=== PATIENT | female | born 1995 | race Caucasian/White ===

== ENCOUNTER 2016-07-22 15:15 | Emergency (ER) | payer OTHER ==
--- NOTE | 2016-07-22 15:57 | ED CLINICAL REPORT ---
Clinical Report - Physicians/Mid Levels [facility] [address] [place] [address] 07/22/2016 15:22 Patient: REGAN MIRELES Time Seen: 15:46 Jul 22 2016. Arrived- By private vehicle. Historian- patient. HISTORY OF PRESENT ILLNESS Chief Complaint: SKIN RASH and TENDER AREA. Is still present. It has been located on the left upper extremity. (osnmr-[id number] individual with history of meth and heroin use and reports area of swelling and pain to the left upper arm. Denies any recent antibiotic use. Denies any recent trauma. Denies fevers or chills. Believes she had a last tetanus immunization within the last 5 years.). REVIEW OF SYSTEMS No fever, chills, difficulty breathing, nausea or diarrhea. All systems otherwise negative, except as recorded above. SOCIAL HISTORY History of drug use iv/im heroin/ meth. ADDITIONAL NOTES The nursing notes have been reviewed. PHYSICAL EXAM Vital Signs: 07/22/2016 15:40 BP: 137/76. HR: 118. RR: 18. O2 saturation: 100%. Temp: 98.2 F. Appearance: Alert. ENT: Nose normal. Pharynx normal. CVS: Normal heart rate and rhythm. Heart sounds normal. Respiratory: No respiratory distress. Breath sounds normal. Skin: Tender indurated area (left lateral deltoid area of mild erythema 4 by 4 cm). Cellulitis. PROGRESS AND PROCEDURES Incision & Drainage of Abscess: Time: 16:07 Jul 22 2016. Time-out completed immediately before the procedure. The abscess is located (left deltoid). Consent was obtained. Local anesthesia provided using 1% lidocaine with epi. ( 18 gauge with no fluid aspirated, thus dressings.). Course of Care: Small possible abscess, unable to palpate L large very fluctuant area, however attempted to open such with an 18-gauge for any possible purulent pocket, none was aspirated beyond sanguinous fluid, patient instructed to follow up in 3-4 days with her primary care provider, she will need warm packs to the area, potentially. Patient is stable. Symptoms better. Patient/family counseled. Disposition: Discharged. CLINICAL IMPRESSION Cellulitis of the left upper arm. Abscess to the left upper extremity. INSTRUCTIONS (Warm packs every 3-4 hours for 5-10 mins). Prescription Medications: Bactrim DS 800 mg / 160 mg: take 1 tablet orally every 12 hours for 10 days. No refill. Substitution is permissible. Keflex 500 mg: take 1 capsule orally every 8 hours for 10 days. No refill. Substitution is permissible. Follow-up: Follow up with your doctor in three. (Electronically signed by Carla Gutierrez P.A.-C 07/22/2016 16:09)
--- NOTE | 2016-07-22 15:57 | ED NURSING NOTES ---
Clinical Report - Nurses [facility] [address] [place] [address] 07/22/2016 15:22 Patient: REGAN MIRELES TRIAGE Triage time 15:41. Acuity: LEVEL 4. Chief Complaint: BOIL. --15:47 Haider Chandra R.N. 15:40 07/22/16. BP: 137/76. HR: 118. RR: 18. O2 saturation: 100%. Temp: 98.2 F. Pain level now 510. --15:47 Haider Chandra R.N. Weight: 90.7 kg stated. Height/Length: 67 inches Per Patient. BMI: 31.3. --15:44 Haider Chandra R.N. Medications None. --15:43 Haider Chandra R.N. Medication/allergy information source: the patient. --15:47 Haider Chandra R.N. Allergies No Known Drug Allergy. --15:43 Haider Chandra R.N. History Arrived by private vehicle. Historian: patient. Accompanied by friend. Reported as located on the right shoulder. This started last night. ( Pt is an IV drug user and shot up in the left arm where the abscess is located. The abscess is red swollen and tender to the touch. Pt uses heroin and meth.). Treatment BOND MANAGER: None. PAST MEDICAL HX: Immunizations: status is unknown. SOCIAL HX: Never smoker. History of drug use: heroin, methamphetamines. Recently used drugs today. No alcohol use. --15:47 Haider Chandra R.N. PROBLEMS: no known problems. ADDITIONAL SURGERIES: no known surgeries. Interventions ID band on patient. To treatment room. --15:47 Haider Chandra R.N. PHYSICAL ASSESSMENT ( Pt has track dhaliwal on both arms. Pt shoot up in the left arm causing her abscess. Pt uses heroin and meth.). GENERAL / NEURO / PSYCH: Alert. The patient does not appear to be in acute distress. Oriented X 4. HEENT: Pupils equal, round and reactive to light. Mucous membranes are pink. RESPIRATORY: Respirations not labored. Breath sounds within normal limits. CVS: Capillary refill less than 2 seconds. Pulses within normal limits. GI / : Abdomen nontender. SKIN: Single skin lesion with erythema, tenderness and increased warmth on the left shoulder. Swelling on the left shoulder. --15:48 Haider Chandra R.N. ( No drainage or open wound is noted in the left arm.). --15:48 Haider Chandra R.N. NURSING PROGRESS NOTES Patient gowned. Two patient identifiers checked. Call light placed in reach. Side rails up x 1. Bed placed in lowest position. Brakes of bed on. --15:48 Haider Chandra R.N. 15:50 07/22/2016 Lidocaine-Epinephrine (Lidocaine-Epinephrine) Injection 2 % given. Given in the left deltoid (split dose). Allergies verified and confirmed 5 rights. (PA used). --15:50 Haider Chandra R.N. 15:59 07/22/2016 Bactrim DS PO (Tablet 800-160 mg) 1 tab (NOW) was refused by patient (pt didnt want to wait). Haider Chandra --16:09 Haider Chandra R.N. DISPOSITION / DISCHARGE Departure time: 16:10. Condition at departure: unchanged. No learning barriers present. Discharge instructions provided and reviewed with the patient. Reviewed medication(s) side effects, precautions, dosing and course information. Prescription(s) given to the patient (antibiotics). Patient verbalized understanding. Written instructions provided in German. The patient was discharged by the physician offset press assistant. She was discharged home and accompanied by cvicu nurse. She left the Emergency Department ambulatory and via private vehicle. Manager Ems driving. BATSHEVA COMA SCORE: Batsheva Coma Scale: 15- eyes open spontaneously (4); best verbal response- oriented x 4 (5); best motor response- obeys commands (6). --16:10 Haider Chandra R.N. Locked/Released at 07/22/2016 16:10 by Haider Chandra R.N.
--- NOTE | 2016-07-22 15:57 | ED ORDER SUMMARY ---
..... Patient: REGAN MIRELES OrderSheet [facility] VisitID: [id number] [place] [address] 21y, F Registration Date/Time: 07/22/2016 ORDER SHEET Weight: 90.7 kg (stated) Allergies: No Known Drug Allergy GENERAL ORDERS: MEDICATION ORDERS: Lidocaine-Epinephrine Injection 2 % (soln) (NOW, place at bedside, with syringes & needles) (15:44 07/22/2016 EKorolebruce P.A.-C) (15:50 TLewis R.N.) Bactrim DS PO (Tablet 800-160 mg) 1 tab (NOW) (15:55 07/22/2016 EKoroleva P.A.-C) (16:09 TLewis R.N.) IV FLUIDS: ORDER SHEET NOTES: [Electronically signed by Carla Gutierrez P.A.-C (16:09 07/22/2016)] [Electronically signed by Haider Chandra R.N. (16:10 07/22/2016)] [Electronically locked/signed by Haider Chandra R.N. (16:10 07/22/2016)]
--- NOTE | 2016-07-22 15:57 | ED ORDER SUMMARY ---
..... Patient: REGAN MIRELES OrderSheet [facility] VisitID: [id number] [place] [address] 21y, F Registration Date/Time: 07/22/2016 ORDER SHEET Weight: 90.7 kg (stated) Allergies: No Known Drug Allergy GENERAL ORDERS: MEDICATION ORDERS: Lidocaine-Epinephrine Injection 2 % (soln) (NOW, place at bedside, with syringes & needles) (15:44 07/22/2016 EKorolebruce P.A.-C) (15:50 TLewis R.N.) Bactrim DS PO (Tablet 800-160 mg) 1 tab (NOW) (15:55 07/22/2016 EKoroleva P.A.-C) (16:09 TLewis R.N.) IV FLUIDS: ORDER SHEET NOTES: [Electronically signed by Carla Gutierrez P.A.-C (16:09 07/22/2016)] [Electronically signed by Haider Chandra R.N. (16:10 07/22/2016)] [Electronically locked/signed by Haider Chandra R.N. (16:10 07/22/2016)]
--- NOTE | 2016-07-22 15:57 | ED NURSING NOTES ---
Clinical Report - Nurses [facility] [address] [place] [address] 07/22/2016 15:22 Patient: REGAN MIRELES TRIAGE Triage time 15:41. Acuity: LEVEL 4. Chief Complaint: BOIL. --15:47 Haider Chandra R.N. 15:40 07/22/16. BP: 137/76. HR: 118. RR: 18. O2 saturation: 100%. Temp: 98.2 F. Pain level now 510. --15:47 Haider Chandra R.N. Weight: 90.7 kg stated. Height/Length: 67 inches Per Patient. BMI: 31.3. --15:44 Haider Chandra R.N. Medications None. --15:43 Haider Chandra R.N. Medication/allergy information source: the patient. --15:47 Haider Chandra R.N. Allergies No Known Drug Allergy. --15:43 Haider Chandra R.N. History Arrived by private vehicle. Historian: patient. Accompanied by friend. Reported as located on the right shoulder. This started last night. ( Pt is an IV drug user and shot up in the left arm where the abscess is located. The abscess is red swollen and tender to the touch. Pt uses heroin and meth.). Treatment ASSISTANT TEACHING PROFESSOR: None. PAST MEDICAL HX: Immunizations: status is unknown. SOCIAL HX: Never smoker. History of drug use: heroin, methamphetamines. Recently used drugs today. No alcohol use. --15:47 Haider Chandra R.N. PROBLEMS: no known problems. ADDITIONAL SURGERIES: no known surgeries. Interventions ID band on patient. To treatment room. --15:47 Haider Chandra R.N. PHYSICAL ASSESSMENT ( Pt has track dhaliwal on both arms. Pt shoot up in the left arm causing her abscess. Pt uses heroin and meth.). GENERAL / NEURO / PSYCH: Alert. The patient does not appear to be in acute distress. Oriented X 4. HEENT: Pupils equal, round and reactive to light. Mucous membranes are pink. RESPIRATORY: Respirations not labored. Breath sounds within normal limits. CVS: Capillary refill less than 2 seconds. Pulses within normal limits. GI / : Abdomen nontender. SKIN: Single skin lesion with erythema, tenderness and increased warmth on the left shoulder. Swelling on the left shoulder. --15:48 Haider Chandra R.N. ( No drainage or open wound is noted in the left arm.). --15:48 Haider Chandra R.N. NURSING PROGRESS NOTES Patient gowned. Two patient identifiers checked. Call light placed in reach. Side rails up x 1. Bed placed in lowest position. Brakes of bed on. --15:48 Haider Chandra R.N. 15:50 07/22/2016 Lidocaine-Epinephrine (Lidocaine-Epinephrine) Injection 2 % given. Given in the left deltoid (split dose). Allergies verified and confirmed 5 rights. (PA used). --15:50 Haider Chandra R.N. 15:59 07/22/2016 Bactrim DS PO (Tablet 800-160 mg) 1 tab (NOW) was refused by patient (pt didnt want to wait). Haider Chandra --16:09 Haider Chandra R.N. DISPOSITION / DISCHARGE Departure time: 16:10. Condition at departure: unchanged. No learning barriers present. Discharge instructions provided and reviewed with the patient. Reviewed medication(s) side effects, precautions, dosing and course information. Prescription(s) given to the patient (antibiotics). Patient verbalized understanding. Written instructions provided in Bulgarian. The patient was discharged by the physician instructional assistant. She was discharged home and accompanied by professor of early childhood education. She left the Emergency Department ambulatory and via private vehicle. Ground Host/Hostess driving. BATSHEVA COMA SCORE: Batsheva Coma Scale: 15- eyes open spontaneously (4); best verbal response- oriented x 4 (5); best motor response- obeys commands (6). --16:10 Haider Chandra R.N. Locked/Released at 07/22/2016 16:10 by Haider Chandra R.N.
--- NOTE | 2016-07-22 15:57 | ED CLINICAL REPORT ---
Clinical Report - Physicians/Mid Levels [facility] [address] [place] [address] 07/22/2016 15:22 Patient: REGAN MIRELES Time Seen: 15:46 Jul 22 2016. Arrived- By private vehicle. Historian- patient. HISTORY OF PRESENT ILLNESS Chief Complaint: SKIN RASH and TENDER AREA. Is still present. It has been located on the left upper extremity. ([id number] individual with history of meth and heroin use and reports area of swelling and pain to the left upper arm. Denies any recent antibiotic use. Denies any recent trauma. Denies fevers or chills. Believes she had a last tetanus immunization within the last 5 years.). REVIEW OF SYSTEMS No fever, chills, difficulty breathing, nausea or diarrhea. All systems otherwise negative, except as recorded above. SOCIAL HISTORY History of drug use iv/im heroin/ meth. ADDITIONAL NOTES The nursing notes have been reviewed. PHYSICAL EXAM Vital Signs: 07/22/2016 15:40 BP: 137/76. HR: 118. RR: 18. O2 saturation: 100%. Temp: 98.2 F. Appearance: Alert. ENT: Nose normal. Pharynx normal. CVS: Normal heart rate and rhythm. Heart sounds normal. Respiratory: No respiratory distress. Breath sounds normal. Skin: Tender indurated area (left lateral deltoid area of mild erythema 4 by 4 cm). Cellulitis. PROGRESS AND PROCEDURES Incision & Drainage of Abscess: Time: 16:07 Jul 22 2016. Time-out completed immediately before the procedure. The abscess is located (left deltoid). Consent was obtained. Local anesthesia provided using 1% lidocaine with epi. ( 18 gauge with no fluid aspirated, thus dressings.). Course of Care: Small possible abscess, unable to palpate L large very fluctuant area, however attempted to open such with an 18-gauge for any possible purulent pocket, none was aspirated beyond sanguinous fluid, patient instructed to follow up in 3-4 days with her primary care provider, she will need warm packs to the area, potentially. Patient is stable. Symptoms better. Patient/family counseled. Disposition: Discharged. CLINICAL IMPRESSION Cellulitis of the left upper arm. Abscess to the left upper extremity. INSTRUCTIONS (Warm packs every 3-4 hours for 5-10 mins). Prescription Medications: Bactrim DS 800 mg / 160 mg: take 1 tablet orally every 12 hours for 10 days. No refill. Substitution is permissible. Keflex 500 mg: take 1 capsule orally every 8 hours for 10 days. No refill. Substitution is permissible. Follow-up: Follow up with your doctor in three. (Electronically signed by Carla Gutierrez P.A.-C 07/22/2016 16:09)
--- NOTE | 2016-07-22 16:10 | ED MAR SUMMARY ---
..... Medication Administration Record [facility] [address] [place] [address] Patient: REGAN MIRELES Visit ID: [id number] 21y, F Weight: 90.7 kg Height/Length: 67 in BMI: 31.3 ALLERGIES: No Known Drug Allergy Given 15:50 07/22/2016 Haider Chandra R.N. Medication Administered: LIDOCAINE-EPINEPHRINE [INJECTION] (LIDOCAINE-EPINEPHRINE), Dose: 2 % Injection. Medication Ordered: Lidocaine-Epinephrine Injection 2 % (soln) (NOW, place at bedside, with syringes & needles).
--- NOTE | 2016-07-22 16:10 | ED MAR SUMMARY ---
..... Medication Administration Record [facility] [address] [place] [address] Patient: REGAN MIRELES Visit ID: [id number] 21y, F Weight: 90.7 kg Height/Length: 67 in BMI: 31.3 ALLERGIES: No Known Drug Allergy Given 15:50 07/22/2016 Haider Chandra R.N. Medication Administered: LIDOCAINE-EPINEPHRINE [INJECTION] (LIDOCAINE-EPINEPHRINE), Dose: 2 % Injection. Medication Ordered: Lidocaine-Epinephrine Injection 2 % (soln) (NOW, place at bedside, with syringes & needles).
--- NOTE | 2016-07-22 16:10 | ED MED RECONCILIATION SUMMARY ---
Patient: REGAN MIRELES Medication Reconciliation Report [facility] VisitID: [id number] [place] [address] 21y, F Registration Date/Time: 07/22/2016 Weight: 90.7 kg Height/Length: 67 in. BMI: 31.3 ALLERGIES: No Known Drug Allergy The patient's Home Medications are listed below: NONE. The source(s) of the original Home Medication information: patient The following Medications were given to the patient in the Emergency Department: Lidocaine-Epinephrine [Injection] Injection 2 %, administered: 07/22/2016 3:50:00 PM The following Medications were prescribed to the patient: Bactrim DS 800 mg / 160 mg: take 1 tablet orally every 12 hours for 10 days. No refill. Substitution is permissible. -- Carla Gutierrez, P.A.-C Keflex 500 mg: take 1 capsule orally every 8 hours for 10 days. No refill. Substitution is permissible. -- Carla Gutierrez, P.A.-C
--- NOTE | 2016-07-22 16:10 | ED MED RECONCILIATION SUMMARY ---
Patient: REGAN MIRELES Medication Reconciliation Report [facility] VisitID: [id number] [place] [address] 21y, F Registration Date/Time: 07/22/2016 Weight: 90.7 kg Height/Length: 67 in. BMI: 31.3 ALLERGIES: No Known Drug Allergy The patient's Home Medications are listed below: NONE. The source(s) of the original Home Medication information: patient The following Medications were given to the patient in the Emergency Department: Lidocaine-Epinephrine [Injection] Injection 2 %, administered: 07/22/2016 3:50:00 PM The following Medications were prescribed to the patient: Bactrim DS 800 mg / 160 mg: take 1 tablet orally every 12 hours for 10 days. No refill. Substitution is permissible. -- Carla Gutierrez, P.A.-C Keflex 500 mg: take 1 capsule orally every 8 hours for 10 days. No refill. Substitution is permissible. -- Carla Gutierrez, P.A.-C
--- NOTE | 2016-07-22 16:10 | ED DISCHARGE INSTRUCTIONS ---
Patient: REGAN MIRELES General Instructions [facility] VisitID: [id number] [place] [address] 21y, F Registration Date/Time: 07/22/2016 Cellulitis of the left upper arm. Abscess to the left upper extremity. INSTRUCTIONS (Warm packs every 3-4 hours for 5-10 mins). Prescription Medications: Bactrim DS 800 mg / 160 mg: take 1 tablet orally every 12 hours for 10 days. No refill. Substitution is permissible. Keflex 500 mg: take 1 capsule orally every 8 hours for 10 days. No refill. Substitution is permissible. Follow-up: Follow up with your doctor in three. ADDITIONAL INFORMATION Cellulitis You have an infection of the skin known as cellulitis. This usually starts with a scrape, cut, insect bite, blister or other opening in the skin which becomes infected. This is a serious condition. It must be watched closely to be sure the infection is not spreading. With antibiotic treatment, the size of the red area will gradually shrink in size until the skin returns to normal. This will take 7-10 days. The red area should never increase in size once the antibiotic medicine has been started. Occasionally, an infection will be resistant to one antibiotic and another one will have to be used. Home Care: 1) Limit the use of the affected part, since excess movement can cause the infection to spread. 2) If the infection is on your leg, walk as little as possible during the first few days of the treatment. Keep your leg elevated while sitting. This will reduce swelling. 3) Take all of the antibiotic medicine exactly as directed until it is gone. Be careful not to miss any doses, especially during the first seven days. Follow Up with your doctor or this facility as directed. Check the infected area daily for the warning signs listed below. Get Prompt Medical Attention if any of the following occur: -- Spreading area of redness -- Increasing swelling or pain -- Appearance of pus or drainage -- Fever over 100.4 F (38.0 C) oral, or over 101.4 F (38.6 C) rectal, after two days on antibiotics Abscess (Antibiotic Treatment Only) An abscess (sometimes called a boil) occurs when bacteria get trapped under the skin and begin to grow. Pus forms inside the abscess as the body responds to the bacteria. An abscess can occur with an insect bite, ingrown hair, blocked oil gland, pimple, cyst, or puncture wound. In the early stages, redness and tenderness are the only symptoms. Sometimes, this stage can be treated with antibiotics alone. If the abscess does not respond to antibiotic treatment, it will need to be drained with a small cut, under local anesthesia. Home care The following will help you care for your abscess at home: Soak the wound in hot water or apply hot packs (small towel soaked in hot water) to the area for 20 minutes at a time. Do this three to four times a day. Apply antibiotic cream or ointment onto the skin 3-4 times a day, unless something else was prescribed. Some ointments include an antibiotic plus a local pain reliever. If your doctor prescribed antibiotics, do not stop taking this medication until you have finished the prescribed course or the doctor tells you to stop. You may use an jzwm-ocz-wlqwivy pain medication to control pain, unless another pain medicine was prescribed. If you have chronic liver or kidney disease or ever had a stomach ulcer or GI bleeding, talk with your doctor before using these any of these. Follow-up care Follow up with your health care provider as advised by our staff. Look at your wound each day for the signs of worsening infection listed below. When to seek medical care Get prompt medical attention if any of the following occur: An increase in redness or swelling Red streaks in the skin leading away from the abscess An increase in local pain or swelling Fever of 100.4F (38C) or higher, or as directed by your health care provider Pus or fluid coming from the abscess Sulfamethoxazole, Trimethoprim Oral tablet What is this medicine? SULFAMETHOXAZOLE; TRIMETHOPRIM or SMX-TMP (suhl fuh meth OK xena zohl; trye METH oh prim) is a combination of a sulfonamide antibiotic and a second antibiotic, trimethoprim. It is used to treat or prevent certain kinds of bacterial infections. It will not work for colds, flu, or other viral infections. How should I use this medicine? Take this medicine by mouth with a full glass of water. Follow the directions on the prescription label. Take your medicine at regular intervals. Do not take it more often than directed. Do not skip doses or stop your medicine early. Talk to your it data architect regarding the use of this medicine in children. Special care may be needed. This medicine has been used in children as young as 2 months of age. What side effects may I notice from receiving this medicine? Side effects that you should report to your doctor or health rn homecare as soon as possible: allergic reactions like skin rash or hives, swelling of the face, lips, or tongue breathing problems fever or chills, sore throat irregular heartbeat, chest pain joint or muscle pain pain or difficulty passing urine red pinpoint spots on skin redness, blistering, peeling or loosening of the skin, including inside the mouth unusual bleeding or bruising unusually weak or tired yellowing of the eyes or skin Side effects that usually do not require medical attention (report to your doctor or health rn homecare if they continue or are bothersome): diarrhea dizziness headache loss of appetite nausea, vomiting nervousness What may interact with this medicine? Do not take this medicine with any of the following medications: aminobenzoate potassium dofetilide metronidazole This medicine may also interact with the following medications: CATHERINE inhibitors like benazepril, enalapril, lisinopril, and ramipril cyclosporine digoxin diuretics indomethacin medicines for diabetes methenamine methotrexate phenytoin potassium supplements pyrimethamine sulfinpyrazone tricyclic antidepressants warfarin What if I miss a dose? If you miss a dose, take it as soon as you can. If it is almost time for your next dose, take only that dose. Do not take double or extra doses. Where should I keep my medicine? Keep out of the reach of children. Store at room temperature between 20 to 25 degrees C (68 to 77 degrees F). Protect from light. Throw away any unused medicine after the expiration date. What should I tell my health care provider before I take this medicine? They need to know if you have any of these conditions: anemia asthma being treated with anticonvulsants if you frequently drink alcohol containing drinks kidney disease liver disease low level of folic acid or xzwuxuy-2-otucezldk dehydrogenase poor nutrition or malabsorption porphyria severe allergies thyroid disorder an unusual or allergic reaction to sulfamethoxazole, trimethoprim, sulfa drugs, other medicines, foods, dyes, or preservatives or trying to get breast-feeding What should I watch for while using this medicine? Tell your doctor or health rn homecare if your symptoms do not improve. Drink several glasses of water a day to reduce the risk of kidney problems. Do not treat diarrhea with over the counter products. Contact your doctor if you have diarrhea that lasts more than 2 days or if it is severe and watery. This medicine can make you more sensitive to the sun. Keep out of the sun. If you cannot avoid being in the sun, wear protective clothing and use a sunscreen. Do not use sun lamps or tanning beds/booths. Cephalexin Monohydrate Oral tablet What is this medicine? CEPHALEXIN (sef a DAVIDSON in) is a cephalosporin antibiotic. It is used to treat certain kinds of bacterial infections It will not work for colds, flu, or other viral infections. How should I use this medicine? Take this medicine by mouth with a full glass of water. Follow the directions on the prescription label. This medicine can be taken with or without food. Take your medicine at regular intervals. Do not take your medicine more often than directed. Take all of your medicine as directed even if you think you are better. Do not skip doses or stop your medicine early. Talk to your it data architect regarding the use of this medicine in children. While this drug may be prescribed for selected conditions, precautions do apply. What side effects may I notice from receiving this medicine? Side effects that you should report to your doctor or health rn homecare as soon as possible: allergic reactions like skin rash, itching or hives, swelling of the face, lips, or tongue breathing problems pain or trouble passing urine redness, blistering, peeling or loosening of the skin, including inside the mouth severe or watery diarrhea unusually weak or tired yellowing of the eyes, skin Side effects that usually do not require medical attention (report to your doctor or health rn homecare if they continue or are bothersome): gas or heartburn genital or anal irritation headache joint or muscle pain nausea, vomiting What may interact with this medicine? probenecid some other antibiotics What if I miss a dose? If you miss a dose, take it as soon as you can. If it is almost time for your next dose, take only that dose. Do not take double or extra doses. There should be at least 4 to 6 hours between doses. Where should I keep my medicine? Keep out of the reach of children. Store at room temperature between 59 and 86 degrees F (15 and 30 degrees C). Throw away any unused medicine after the expiration date. What should I tell my health care provider before I take this medicine? They need to know if you have any of these conditions: kidney disease stomach or intestine problems, especially colitis an unusual or allergic reaction to cephalexin, other cephalosporins, penicillins, other antibiotics, medicines, foods, dyes or preservatives or trying to get breast-feeding What should I watch for while using this medicine? Tell your doctor or health rn homecare if your symptoms do not begin to improve in a few days. Do not treat diarrhea with over the counter products. Contact your doctor if you have diarrhea that lasts more than 2 days or if it is severe and watery. If you have diabetes, you may get a false-positive result for sugar in your urine. Check with your doctor or health rn homecare. You have been given the following additional information: Cellulitis Abscess, Antiobiotic Treatment Only Sulfamethoxazole, Trimethoprim Oral tablet Cephalexin Monohydrate Oral tablet (Electronically signed by Carla Gutierrez P.A.-C 07/22/2016 16:09)
--- NOTE | 2016-07-22 16:10 | ED DISCHARGE INSTRUCTIONS ---
Patient: REGAN MIRELES General Instructions [facility] VisitID: [id number] [place] [address] 21y, F Registration Date/Time: 07/22/2016 Cellulitis of the left upper arm. Abscess to the left upper extremity. INSTRUCTIONS (Warm packs every 3-4 hours for 5-10 mins). Prescription Medications: Bactrim DS 800 mg / 160 mg: take 1 tablet orally every 12 hours for 10 days. No refill. Substitution is permissible. Keflex 500 mg: take 1 capsule orally every 8 hours for 10 days. No refill. Substitution is permissible. Follow-up: Follow up with your doctor in three. ADDITIONAL INFORMATION Cellulitis You have an infection of the skin known as cellulitis. This usually starts with a scrape, cut, insect bite, blister or other opening in the skin which becomes infected. This is a serious condition. It must be watched closely to be sure the infection is not spreading. With antibiotic treatment, the size of the red area will gradually shrink in size until the skin returns to normal. This will take 7-10 days. The red area should never increase in size once the antibiotic medicine has been started. Occasionally, an infection will be resistant to one antibiotic and another one will have to be used. Home Care: 1) Limit the use of the affected part, since excess movement can cause the infection to spread. 2) If the infection is on your leg, walk as little as possible during the first few days of the treatment. Keep your leg elevated while sitting. This will reduce swelling. 3) Take all of the antibiotic medicine exactly as directed until it is gone. Be careful not to miss any doses, especially during the first seven days. Follow Up with your doctor or this facility as directed. Check the infected area daily for the warning signs listed below. Get Prompt Medical Attention if any of the following occur: -- Spreading area of redness -- Increasing swelling or pain -- Appearance of pus or drainage -- Fever over 100.4 F (38.0 C) oral, or over 101.4 F (38.6 C) rectal, after two days on antibiotics Abscess (Antibiotic Treatment Only) An abscess (sometimes called a boil) occurs when bacteria get trapped under the skin and begin to grow. Pus forms inside the abscess as the body responds to the bacteria. An abscess can occur with an insect bite, ingrown hair, blocked oil gland, pimple, cyst, or puncture wound. In the early stages, redness and tenderness are the only symptoms. Sometimes, this stage can be treated with antibiotics alone. If the abscess does not respond to antibiotic treatment, it will need to be drained with a small cut, under local anesthesia. Home care The following will help you care for your abscess at home: Soak the wound in hot water or apply hot packs (small towel soaked in hot water) to the area for 20 minutes at a time. Do this three to four times a day. Apply antibiotic cream or ointment onto the skin 3-4 times a day, unless something else was prescribed. Some ointments include an antibiotic plus a local pain reliever. If your doctor prescribed antibiotics, do not stop taking this medication until you have finished the prescribed course or the doctor tells you to stop. You may use an fhcr-guy-dvoncwz pain medication to control pain, unless another pain medicine was prescribed. If you have chronic liver or kidney disease or ever had a stomach ulcer or GI bleeding, talk with your doctor before using these any of these. Follow-up care Follow up with your health care provider as advised by our staff. Look at your wound each day for the signs of worsening infection listed below. When to seek medical care Get prompt medical attention if any of the following occur: An increase in redness or swelling Red streaks in the skin leading away from the abscess An increase in local pain or swelling Fever of 100.4F (38C) or higher, or as directed by your health care provider Pus or fluid coming from the abscess Sulfamethoxazole, Trimethoprim Oral tablet What is this medicine? SULFAMETHOXAZOLE; TRIMETHOPRIM or SMX-TMP (suhl fuh meth OK xena zohl; trye METH oh prim) is a combination of a sulfonamide antibiotic and a second antibiotic, trimethoprim. It is used to treat or prevent certain kinds of bacterial infections. It will not work for colds, flu, or other viral infections. How should I use this medicine? Take this medicine by mouth with a full glass of water. Follow the directions on the prescription label. Take your medicine at regular intervals. Do not take it more often than directed. Do not skip doses or stop your medicine early. Talk to your fitting room operator regarding the use of this medicine in children. Special care may be needed. This medicine has been used in children as young as 2 months of age. What side effects may I notice from receiving this medicine? Side effects that you should report to your doctor or health critical care physician assistant as soon as possible: allergic reactions like skin rash or hives, swelling of the face, lips, or tongue breathing problems fever or chills, sore throat irregular heartbeat, chest pain joint or muscle pain pain or difficulty passing urine red pinpoint spots on skin redness, blistering, peeling or loosening of the skin, including inside the mouth unusual bleeding or bruising unusually weak or tired yellowing of the eyes or skin Side effects that usually do not require medical attention (report to your doctor or health critical care physician assistant if they continue or are bothersome): diarrhea dizziness headache loss of appetite nausea, vomiting nervousness What may interact with this medicine? Do not take this medicine with any of the following medications: aminobenzoate potassium dofetilide metronidazole This medicine may also interact with the following medications: CATHERINE inhibitors like benazepril, enalapril, lisinopril, and ramipril cyclosporine digoxin diuretics indomethacin medicines for diabetes methenamine methotrexate phenytoin potassium supplements pyrimethamine sulfinpyrazone tricyclic antidepressants warfarin What if I miss a dose? If you miss a dose, take it as soon as you can. If it is almost time for your next dose, take only that dose. Do not take double or extra doses. Where should I keep my medicine? Keep out of the reach of children. Store at room temperature between 20 to 25 degrees C (68 to 77 degrees F). Protect from light. Throw away any unused medicine after the expiration date. What should I tell my health care provider before I take this medicine? They need to know if you have any of these conditions: anemia asthma being treated with anticonvulsants if you frequently drink alcohol containing drinks kidney disease liver disease low level of folic acid or tpnzstj-[id number]-ibtgfuqod dehydrogenase poor nutrition or malabsorption porphyria severe allergies thyroid disorder an unusual or allergic reaction to sulfamethoxazole, trimethoprim, sulfa drugs, other medicines, foods, dyes, or preservatives or trying to get breast-feeding What should I watch for while using this medicine? Tell your doctor or health critical care physician assistant if your symptoms do not improve. Drink several glasses of water a day to reduce the risk of kidney problems. Do not treat diarrhea with over the counter products. Contact your doctor if you have diarrhea that lasts more than 2 days or if it is severe and watery. This medicine can make you more sensitive to the sun. Keep out of the sun. If you cannot avoid being in the sun, wear protective clothing and use a sunscreen. Do not use sun lamps or tanning beds/booths. Cephalexin Monohydrate Oral tablet What is this medicine? CEPHALEXIN (sef a DAVIDSON in) is a cephalosporin antibiotic. It is used to treat certain kinds of bacterial infections It will not work for colds, flu, or other viral infections. How should I use this medicine? Take this medicine by mouth with a full glass of water. Follow the directions on the prescription label. This medicine can be taken with or without food. Take your medicine at regular intervals. Do not take your medicine more often than directed. Take all of your medicine as directed even if you think you are better. Do not skip doses or stop your medicine early. Talk to your fitting room operator regarding the use of this medicine in children. While this drug may be prescribed for selected conditions, precautions do apply. What side effects may I notice from receiving this medicine? Side effects that you should report to your doctor or health critical care physician assistant as soon as possible: allergic reactions like skin rash, itching or hives, swelling of the face, lips, or tongue breathing problems pain or trouble passing urine redness, blistering, peeling or loosening of the skin, including inside the mouth severe or watery diarrhea unusually weak or tired yellowing of the eyes, skin Side effects that usually do not require medical attention (report to your doctor or health critical care physician assistant if they continue or are bothersome): gas or heartburn genital or anal irritation headache joint or muscle pain nausea, vomiting What may interact with this medicine? probenecid some other antibiotics What if I miss a dose? If you miss a dose, take it as soon as you can. If it is almost time for your next dose, take only that dose. Do not take double or extra doses. There should be at least 4 to 6 hours between doses. Where should I keep my medicine? Keep out of the reach of children. Store at room temperature between 59 and 86 degrees F (15 and 30 degrees C). Throw away any unused medicine after the expiration date. What should I tell my health care provider before I take this medicine? They need to know if you have any of these conditions: kidney disease stomach or intestine problems, especially colitis an unusual or allergic reaction to cephalexin, other cephalosporins, penicillins, other antibiotics, medicines, foods, dyes or preservatives or trying to get breast-feeding What should I watch for while using this medicine? Tell your doctor or health critical care physician assistant if your symptoms do not begin to improve in a few days. Do not treat diarrhea with over the counter products. Contact your doctor if you have diarrhea that lasts more than 2 days or if it is severe and watery. If you have diabetes, you may get a false-positive result for sugar in your urine. Check with your doctor or health critical care physician assistant. You have been given the following additional information: Cellulitis Abscess, Antiobiotic Treatment Only Sulfamethoxazole, Trimethoprim Oral tablet Cephalexin Monohydrate Oral tablet (Electronically signed by Carla Gutierrez P.A.-C 07/22/2016 16:09)
== END 2016-07-22 15:22 | disposition home or self-care (01) ==
LOC: ED SRH 15:15
DX: L03.114 Cellulitis of left upper limb (principal); L02.414 Cutaneous abscess of left upper limb